=== PATIENT | male | born 1955 | race African-American/Black ===

== ENCOUNTER 2019-03-09 10:56 | Emergency (ER) | payer OTHER | END 2019-03-09 13:57 | disposition home or self-care (01) | LOC: FER 10:56 ==

== ENCOUNTER 2020-02-15 01:31 | Emergency (ER) | payer OTHER ==
[2020-02-15 01:37] VITALS: BP 126/95; PULSE 72; TEMP 97.5; BMI 24.3
--- NOTE | 2020-02-15 01:45 | PDOC ---
History of Present Illness - General Chief Complaint: Pain, Acute Stated Complaint: RUQ ABD PAIN Time Seen by Provider: 02/15/20 01:34 History Source: Patient Exam Limitations: No Limitations - History of Present Illness Initial Comments: 02/15/20 01:37 HPI 64 YOM with h/o kidney stones and arthritis presenting with acute right flank/RLQ pain tonight. He stated he had intermittent right flank pain x 1 week, but worsened tonight. He cannot get comfortable. He took tylenol 2 hours [employer] without relief. he describes his pain as RLQ, sharp, nonradiating, /10. denies any trauma or heavy exercise/lifting. Has history of 2 prior kidney stones, one requiring lithotripsy over 10 years ago, and the last episode in 2019 that was uncomplicated (CT a/p showed 3mm left UVJ stone). Denies fever, chills, chest pain, SOB, palpitation, dizziness, weakness, N, V, D, bladder and bowel problems, hematuria, urgency or frequency, focal weakness/paresthesias, leg swelling/pain, rash. No new changes in medications. Allergies: None Past Medical History/ kidney stones, arthritis PSH: left knee surgery, lithotripsy 08/01/10 Social history: Lives with family. No tobacco, ETOH or drug use. Meds: as documented in EMR Family history: noncontributory PMD Dr. Ragsdale, [facility] Urology: Dr. Prateek Bhandari [facility] Review of systems Constitutional: no fevers or chills. No weakness HEENT: no headache or dizziness. No congestion. No visual/hearing disturbances. CVS: no cp or syncope. Resp: no sob. No cough. Gastrointestinal: +flank/abdominal pain, No nausea, vomiting, diarrhea. Genitourinary: no urinary sx, hematuria. no urgency frequency or dysuria. MUSCULOSKELETAL: No joint pain and swelling. No neck or back pain. SKIN: no redness or skin changes, no discharge, no rash. No wounds. Hematologic: no easy bruising/bleeding. NEUROLOGIC: No headache, dizziness, LOC or altered mental status. No weakness, numbness or tingling. Psych: no anxiety or depression Allergic/Immunologic: no allergies All other systems reviewed and negative, or as documented in HPI. Physical exam General: awake and alert, colicky HEENT: NCAT, PERRL, EOMI, clear conjunctiva, anicteric, moist mucus membranes, clear oropharynx, no oral lesions.. Neck: neck supple, FROM Resp: CTAB, normal and even respirations, no respiratory distress CVS: RRR, no murmurs, 2+ peripheral pulses throughout, no peripheral edema Abdomen: soft, NTND, no rebound or guarding. no RLQ tenderness, +right flank TTP. Back: nontender, normal inspection and ROM. no CVAT. MSK: no edema, DAVIES x4, ROM intact. No clubbing or cyanosis. normal bulk and tone. +left medial knee scar. Extremities: no calf tenderness Neuro: alert, oriented appropriately; no focal neurologic deficits Psych: Calm and cooperative Skin: warm and well perfused, cap refill <2 sec, normal color, no rash or skin discoloration. 02/15/20 01:47 02/15/20 01:50 02/15/20 02:11 02/15/20 03:40 Past History - Medical History Allergies/Adverse Reactions: Allergies Allergy/AdvReac Type Severity Reaction Status Date / Time No Known Allergies Allergy Verified 03/09/19 10:58 Home Medications: Ambulatory Orders Ibuprofen 600 mg PO QID PRN #20 tablet 02/15/20 Ondansetron [Zofran *Odt*] 4 mg SL TID PRN #9 od.tablet 02/15/20 Oxycodone HCl 10 mg PO QID PRN #12 tablet MDD 4 02/15/20 COPD: No Kidney Stones: Yes - Psycho-Social/Smoking History Smoking History: Never smoked *Physical Exam - Vital Signs Last Vital Signs Temp Pulse Resp BP Pulse Ox 97.5 F L 72 18 126/95 100 02/15/20 01:33 02/15/20 01:33 02/15/20 01:33 02/15/20 01:33 02/15/20 01:33 ED Treatment Course - LABORATORY CBC & Chemistry Diagram: 02/15/20 01:56 02/15/20 01:55 Medical Decision Making - Medical Decision Making 02/15/20 01:50 Vital Signs Temp Pulse Resp BP Pulse Ox 97.5 F L 72 18 126/95 100 02/15/20 01:33 02/15/20 01:33 02/15/20 01:33 02/15/20 01:33 02/15/20 01:33 DDx abdominal pain: Renal colic, biliary colic, metabolic/electrolyte d erangements. GERD, PUD, esophageal spasm, pancreatitis, hepatitis, constipation, colitis, gastroenteritis, cholecystitis, UTI, pyelonephritis, ileus, SBO, medication side effect, hernia, appendicitis, diverticulitis, mesenteric ischemia. msk strain, mesenteric adenitis, psoas abscess. vitals reviewed, wnl nontoxic no fever/systemic findings. Clinically the patient presents with symptomatic ureterolithiasis (kidney stones). IV pain medications, antiemetics, and IV fluids were given. A CT Abdome n/Pelvis was obtained for concern for a possible obstructing kidney stone and to rule out other pathologic conditions. The CT confirmed revealed a stone at 6mm, mid right ureter. The patient's labs were significant for normal wbc ct and cr /lytes. Lactic normal, reassuring, doubt ischemia/sepsis or severe pathology UA neg for infection, RBCs present from active kidney stone passage. With pain medication the patient improved significantly. The patient is referred to his own urologist Dr Bhandari, for follow up and is discharged with oral narcotics for pain control, antiemetics, and given the following return precautions: Fever > 100.5, pain not controlled with narcotics, worsening pain, dehydration, vomiting or any other concerns and to strain the urine. allow patient trial of void and medical expulsive therapy. NSAIDS/tylenol for mild to moderate pain, rx oxycodone PRN for more severe pain. zofran for nausea, adequate hydration and oral fluids and air conditioning in hot weather. literature/evidence low for flomax benefit, so defer. urine strainer to catch urine. f/u Dr Bhandari, [facility] where he had previous care in [facility] 02/15/20 03:23 02/15/20 03:40 02/15/20 06:56 02/15/20 06:57 02/15/20 06:57 Discharge - Discharge Information Problems reviewed: Yes Clinical Impression/Diagnosis: Ureterolithiasis, Hydronephrosis of right kidney Condition: Stable Disposition: HOME - Admission No - Additional Discharge Information Prescriptions: Ibuprofen 600 mg PO QID PRN #20 tablet PRN Reason: Pain Oxycodone HCl 10 mg PO QID PRN #12 tablet MDD 4 PRN Reason: Pain Level 7 - 10 Ondansetron [Zofran *Odt*] 4 mg SL TID PRN #9 od.tablet PRN Reason: nausea vomiting - Follow up/Referral Referrals: Mercedes Spencer MD [Primary Care Provider] - - Patient Discharge Instructions Patient Printed Discharge Instructions: DI for Kidney Stones Additional Instructions: Your CT results were significant for obstructed stone measuring 6mm in the right ureter and swelling of collecting system, you have bilateral kidney stones that are nonobstructing as well. Drink plenty of water/fluids, avoid caffeine or alcohol Strain all urine for the next 1-2 days and save any stone for analysis Ibuprofen/naproxen/acetaminophen as needed for [id number] pain. Use Motrin (also called Ibuprofen or Advil) 400 mg every 6 hours as needed for pain. If you have any stomach discomfort while taking Motrin, you can use TUMS to help. Oxycodone every 6 hours as needed for severe pain; Please do not drive or operate heavy machinery while on this medication because it can impair your judgement. This is a very addictive medication, do not take it unless you absolutely have to. Return to ER if you experience persistent pain/vomiting/fever/dehydration, difficulty urinating or inability to tolerate oral intake. Follow-up with your urologist Dr Prateek Bhandari within the next 2-3 days. Urologist follow up this week, referral given as well. (we will give you a list of urologists, but make sure they accept your insurance). Please bring your labs and imaging with you to your appointment. - Post Discharge Activity
[2020-02-15] MEDS ORDERED: ONDANSETRON 4 MG/2 ML VIAL IVPUSH ONE (01:46)
[2020-02-15] MEDS ORDERED: SODIUM CHLORIDE 0.9% 500 ML INFUS.BAG IV ONE (01:46)
[2020-02-15] MEDS ORDERED: morphine CARPU-JECT 4 MG/1 ML DISP.SYRIN IVPUSH ONE (01:46)
[2020-02-15] MEDS ORDERED: ONDANSETRON 4 MG/2 ML VIAL ONE (01:52)
[2020-02-15] MEDS ORDERED: morphine SULFATE 4 MG/ML VIAL ONE (01:52)
[2020-02-15] MEDS ORDERED: KETOROLAC TROMETHAMINE 15 MG/ML VIAL IVPUSH ONE (02:11)
[2020-02-15] MEDS ORDERED: ACETAMINOPHEN 1000 MG/100 ML VIAL (NON FORMULARY) IVPB ONE (02:11)
[2020-02-15] MEDS ORDERED: ACETAMINOPHEN INJECTION 100 ML IVPB ONE (02:12)
[2020-02-15] MEDS ORDERED: KETOROLAC TROMETHAMINE 15 MG/ML VIAL ONE (02:12)
[2020-02-15 03:09] LABS: BASO % 1.1 % (0-2.0); EOS % 4.9 % (0-4.5); HEMATOCRIT 39.8 % (35.4-49); HEMOGLOBIN 13.4 GM/dL (11.7-16.9); LYMPH % 30.1 % (8-40); MCH 30.8 pg (25.7-33.7); MCHC 33.6 g/dl (32.0-35.9); MEAN CELL VOLUME 91.7 fl (80-96); MEAN PLT VOLUME 8.8 fl (7.5-11.1); MONO % 10.4 % (3.8-10.2); NEUT % 53.5 % (42.8-82.8); PLATELET COUNT 186 K/MM3 (134-434); RBC 4.34 M/mm3 (4.00-5.60); RDW 13.9 % (11.9-15.9); WHITE BLOOD COUNT 4.1 K/mm3 (4.0-10.0)
[2020-02-15 03:37] LABS: ALBUMIN 3.7 g/dl (3.4-5.0); BILIRUBIN,TOTAL 0.3 mg/dL (0.2-1); BLOOD UREA NITROGEN 18.6 mg/dL (7-18); CALCIUM 8.7 mg/dL (8.5-10.1); CREATININE 1.3 mg/dL (0.55-1.3); POTASSIUM 3.9 mmol/L (3.5-5.1); TOT PROT 7.1 g/dl (6.4-8.2)
[2020-02-15 04:51] LABS: EPI CELLS 2 /uL (0-25.1); HYALINE CASTS 0 /uL (0-3.1); PH,URINE 7.5 (5.0-8.0); URINE APPEARANCE CLEAR; URINE BACTERIA 7 /uL (0-1359); URINE BILIRUBIN NEGATIVE (NEGATIVE); URINE COLOR YELLOW; URINE GLUCOSE (UA) NEGATIVE (NEGATIVE); URINE KETONE NEGATIVE (NEGATIVE); URINE LEUK ESTERASE NEGATIVE (NEGATIVE); URINE NITRITE NEGATIVE (NEGATIVE); URINE PROTEIN NEGATIVE (NEGATIVE); URINE RBC 91 /uL (0-23.9); URINE WBC 6 /uL (0-25.8)
== END 2020-02-15 04:48 | disposition home or self-care (01) ==
LOC: FER 01:31
PROC: 3E033GC Introduction of Other Therapeutic Substance into Peripheral Vein, Percutaneous Approach (ICD-10-PCS; principal; 2020-02-15)
DX: N13.2 Hydronephrosis with renal and ureteral calculous obstruction (principal)
CPT/HCPCS: 36415; 74176-TC; 80053; 81003; 83605; 83690; 85025; 87086; 99285-25; J0131